=== PATIENT | female | born 1975 | race African-American/Black ===

== ENCOUNTER 2018-10-18 08:51 | Emergency (ER) | payer OTHER ==
[~2018-10-18] VITALS: Ht 165.1 cm; Wt 95.5 kg
[2018-10-18] MEDS ORDERED: IPRATROPIUM BROMIDE 0.5 MG/2.5 ML NEB SOLUTION NEB ONE (10:15)
[2018-10-18] MEDS ORDERED: ALBUTEROL SULFATE 2.5 MG/0.5 ML NEB SOLUTION NEB ONE (10:15)
[2018-10-18] MEDS ORDERED: PredniSONE 20 MG TABLET PO ONE (10:45)
[2018-10-18 11:15] VITALS: BP 102/73
== END 2018-10-18 11:43 | disposition home or self-care (01) ==
LOC: EMS 08:51
DX: J40 Bronchitis, not specified as acute or chronic (principal); F17.210 Nicotine dependence, cigarettes, uncomplicated
CPT/HCPCS: 71045; 94640; 99283; 99406; J7512